=== PATIENT | female | born 1990 | race American Indian/Alaskan Native ===

== ENCOUNTER 2019-02-14 00:47 | Observation (INO) | payer MEDICAID ==
[2019-02-14] MEDS ORDERED: oxyCODONE /ACETAMINOPHEN 5-325MG TAB PO ONE (02:26)
[2019-02-14] MEDS ORDERED: ACETAMINOPHEN 325 MG TAB PO PRN (13:33)
[2019-02-14 16:32] VITALS: BP 114/57
== END 2019-02-14 18:47 | disposition home or self-care (01) ==
LOC: TRG 00:47 → LD 03:23
PROVIDERS: ADMIT Obstetrics & Gynecology; ATTEND Obstetrics & Gynecology
DX: O62.9 Abnormality of forces of labor, unspecified (principal); Z3A.32 32 weeks gestation of pregnancy
CPT/HCPCS: 96372; G0378

== ENCOUNTER 2019-03-10 14:01 | Outpatient (CLI) | payer MEDICAID ==
[2019-03-10 14:34] VITALS: BP 118/79
[2019-03-10] MEDS ORDERED: LACTATED RINGERS 500 ML IV ONE (16:00)
== END 2019-03-10 15:26 | disposition home or self-care (01) ==
LOC: TRG 14:01
PROVIDERS: ATTEND Obstetrics & Gynecology
DX: O47.03 False labor before 37 completed weeks of gestation, third trimester (principal); Z3A.31 31 weeks gestation of pregnancy
CPT/HCPCS: 59025

== ENCOUNTER 2019-04-16 11:01 | Outpatient (CLI) | payer MEDICAID ==
[2019-04-16] MEDS ORDERED: LACTATED RINGERS 500 ML IV ONE (12:00)
[2019-04-16 12:41] LABS: Bilirubin,Urine Negative (Negative); Blood,Urine Negative (Negative); Color,Urine Yellow (Yellow)
[2019-04-16 12:42] LABS: Protein,Urine <15 mg/dL mg/dL (Negative)
[2019-04-16 12:44] LABS: Mucus,Urine 2+ /HPF
[2019-04-16 12:45] LABS: WBC,Urine < 1.0 /HPF (0.0-6.0)
[2019-04-16 13:04] VITALS: BP 122/73
--- NOTE | 2019-04-16 16:02 | Ultrasound Report ---
Limited OB ultrasound INDICATION: Amniotic fluid index FINDINGS: The amniotic fluid index is 9.8 cm. There is a single intrauterine . Fetus is in a cephalic presentation. Placenta is located an teriorly. heart rate is 149 bpm. IMPRESSION: The amniotic fluid index is 9.8 cm which is within normal limits. BIOPHYSICAL PROFILE INDICATION: COMPARISON: None FINDINGS: breathing movement: 0/2 movement: 2/2 posture and tone: 2/2 Qualitative amniotic fluid volume: 2/2 IMPRESSION: Total score for biophysical profile is 6/8. breathing movements were absent. heart rate is 149 bpm Signer Name: Rafael Tolentino MD Signed: 04/16/2019 3:58 PM Workstation Name: [id number]
== END 2019-04-16 15:20 | disposition home or self-care (01) ==
LOC: TRG 11:01
PROVIDERS: ATTEND Obstetrics & Gynecology
DX: O47.03 False labor before 37 completed weeks of gestation, third trimester (principal); Z3A.36 36 weeks gestation of pregnancy
CPT/HCPCS: 59025; 76815; 76819; 81001

== ENCOUNTER 2019-04-23 11:15 | Outpatient (CLI) | payer MEDICAID ==
[2019-04-23 11:44] LABS: Hematocrit 33.7 % (30.3-42.9); Hemoglobin 11.2 gm/dl (10.1-14.3); Mean Corpuscular HGB Conc 33 % (30-34); Mean Corpuscular Volume 93 fl (79-97); Platelet Count 192 K/mm3 (140-440); Red Blood Count 3.62 M/mm3 (3.65-5.03); Red Cell Distribution Width 13.9 % (13.2-15.2)
[2019-04-23 11:54] LABS: Bacteria,Urine 1+ /HPF (Negative); Bilirubin,Urine NEG (Negative); Blood,Urine NEG (Negative); Color,Urine Yellow (Yellow); Hyaline Casts,Urine 1 /LPF; Mucus,Urine 1+ /HPF; Protein,Urine <15 mg/dL mg/dL (Negative)
[2019-04-23 12:15] LABS: Alanine Aminotransferase 27 units/L (7-56); Uric Acid 3.7 mg/dL (3.5-7.6)
[2019-04-23] MEDS ORDERED: LACTATED RINGERS 500 ML IV ONE (12:22)
[2019-04-23 13:57] VITALS: BP 129/77
== END 2019-04-23 14:17 | disposition home or self-care (01) ==
LOC: TRG 11:15
PROVIDERS: ATTEND Obstetrics & Gynecology
DX: O47.1 False labor at or after 37 completed weeks of gestation (principal); Z3A.37 37 weeks gestation of pregnancy
CPT/HCPCS: 36415; 59025; 81001; 82565; 83615; 84450; 84460; 84550; 85027

== ENCOUNTER 2019-04-25 11:31 | Inpatient (IN) | payer MEDICAID ==
[2019-04-25 12:55] LABS: Bacteria,Urine 3+ /HPF (Negative); Bilirubin,Urine NEG (Negative); Blood,Urine NEG (Negative); Color,Urine Yellow (Yellow); Mucus,Urine 3+ /HPF
[2019-04-25 13:07] LABS: Hematocrit 33.5 % (30.3-42.9); Hemoglobin 11.2 gm/dl (10.1-14.3); Mean Corpuscular HGB Conc 34 % (30-34); Mean Corpuscular Volume 92 fl (79-97); Platelet Count 207 K/mm3 (140-440); Red Blood Count 3.64 M/mm3 (3.65-5.03); Red Cell Distribution Width 13.4 % (13.2-15.2)
[2019-04-25 13:29] LABS: Alanine Aminotransferase 26 units/L (7-56); Uric Acid 3.9 mg/dL (3.5-7.6)
--- NOTE | 2019-04-25 14:20 | History and Physical Report ---
History of Present Illness Date of examination: 04/25/19 Chief complaint: Elevated BP's with headaches History of present illness: Pt is a 29yo BF EDC 05/11/19; EGA 37 5/7 weeks presents to L&D complaining of headaches unrelieved with PO Tylenol. She was here 2 days ago with similar complaints, and now having irregular contractions. She received care at [facility] since 23 weeks and course has been unremarkable. records are available and GBS is unknown. Past History Past Medical History: no pertinent history Past Surgical History: no surgical history Social history: no significant social history, - Obstetrical History Expected Date of Delivery: 05/11/19 Actual Gestation: 37 Week(s) 5 Day(s) : 5 Medications and Allergies Allergies Allergy/AdvReac Type Severity Reaction Status Date / Time No Known Allergies Allergy Verified 09/26/13 07:21 Home Medications Medication Instructions Recorded Confirmed Last Taken Type No Known Home Medications [No 02/14/19 03/10/19 Unknown History Reported Home Medications] Active Meds: Active Medications Lactated Ringer's (Lactated Ringers) 1,000 mls @ 125 mls/hr IV DIRECT CYDNEY Review of Systems All systems: negative - Vital Signs Vital signs: Vital Signs Pulse Pulse Ox 111 H 96 04/25/19 12:00 04/25/19 12:00 Temp Pulse Resp BP Pulse Ox 98.6 F 106 H 20 143/90 100 04/25/19 12:46 04/25/19 14:15 04/25/19 12:46 04/25/19 14:15 04/25/19 14:10 - Physical Exam Breasts: Positive: deferred Cardiovascular: Regular rate Lungs: Positive: Clear to auscultation Abdomen: Positive: normal appearance Genitourinary (Female): Positive: normal external genitalia Vagina: Positive: normal moisture Uterus: Positive: enlarged Extremities: Positive: normal - Obstetrical FHR: category 1 Uterine Contraction Monitor Mode: External Uterine Contraction Pattern: Irregular Uterine Tone Measurement Phase: Contraction Uterine Contraction Intensity: Mild Results Result Diagrams: 04/25/19 12:14 04/25/19 12:14 Abnormal lab results 04/25/19 04/25/19 Range/Units 12:14 12:14 RBC 3.64 L (3.65-5.03) M/mm3 Lactate Dehydrogenase 234 H (91-180) units/L All other labs normal. Assessment and Plan - Patient Problems (1) 37 weeks gestation of Onset Date: 04/25/19 Current Visit: Yes Status: Acute Plan to address problem: A: IUP @ 37 5/7 weeks Preeclampsia H/O Preeclampsia P: Admit to L&D for pitocin augmentation of labor Will begin IV Magnesium sulfate if BP's not controlled with IV Hydralazine (2) Hx of pre-eclampsia in prior , currently Onset Date: 04/25/19 Current Visit: No Status: Acute
[2019-04-25] MEDS ORDERED: ONDANSETRON 4 MG/2 ML INJ IV PRN (14:29)
[2019-04-25] MEDS ORDERED: hydrALAZINE 20 MG/1 ML INJ IV PRN (14:29)
[2019-04-25] MEDS ORDERED: ePHEDrine SULFATE 50 MG/1 ML INJ IV PRN (14:29)
[2019-04-25] MEDS ORDERED: MINERAL OIL 30 ML ORAL LIQD PO PRN (14:29)
[2019-04-25] MEDS ORDERED: TERBUTALINE 1 MG/1 ML INJ IVP PRN (14:29)
[2019-04-25] MEDS ORDERED: BUTORPHANOL 2 MG/1 ML INJ IV PRN (14:29)
[2019-04-25] MEDS ORDERED: fentaNYL 100 MCG/2 ML INJ IV PRN (14:29)
[2019-04-25] MEDS ORDERED: PROMETHAZINE 25 MG TAB PO PRN (14:29)
[2019-04-25] MEDS ORDERED: TERBUTALINE 1 MG/1 ML INJ SUB-Q PRN (14:29)
[2019-04-25] MEDS ORDERED: LIDOCAINE (2%) 20 MG/1 ML VIAL 20 ML MDV INFILTRATI ONE (14:29)
[2019-04-25] MEDS ORDERED: OXYTOCIN 20 UNIT/1000ML DRIP 20 UNITS/1,000 ML BAG IV SCH (15:00)
[2019-04-25] MEDS ORDERED: OXYTOCIN DRIP 30 UNITS/500 ML BAG IV SCH (15:00)
[2019-04-25] MEDS ORDERED: LACTATED RINGERS 1,000 ML IV SCH (15:00)
[2019-04-25] MEDS: LACTATED RINGERS 1,000 ML IV SCH (17:22)
[2019-04-25] MEDS: oxyCODONE /ACETAMINOPHEN 5-325MG TAB PO PRN (17:28)
[2019-04-25] MEDS: OXYTOCIN DRIP 30 UNITS/500 ML BAG IV SCH (17:54)
[2019-04-26] MEDS: LACTATED RINGERS 1,000 ML IV SCH ×3 (00:41→11:35)
--- NOTE | 2019-04-26 08:22 | Progress Note ---
Assessment and Plan - Patient Problems (1) 37 weeks gestation of Onset Date: 04/25/19 Current Visit: Yes Status: Acute Plan to address problem: A: IUP @ 37 6/7 weeks Preeclampsia H/O Preeclampsia P: Continue with pitocin augmentation of labor Will begin IV Magnesium sulfate if BP's not controlled with IV Hydralazine (2) Hx of pre-eclampsia in prior , currently Onset Date: 04/25/19 Current Visit: No Status: Acute Subjective - Subjective Date of service: 04/26/19 Principal diagnosis: IUP @ 37 6/7 weeks; Preeclampsia Interval history: Pt is a 29yo BF EDC 05/11/19; EGA 37 6/7 weeks presented to L&D complaining of headaches unrelieved with PO Tylenol. She was here 3 days ago with similar complaints, and now having irregular contractions. She received care at [facility] since 23 weeks and course has been unremarkable. records are available and GBS is negative. She received low dose pitocin last night, and currently on 4mu/min. Patient reports: movement normal, contractions, no new complaints, no loss of fluid, no vaginal bleeding Objective - Vital Signs Vital Signs: Vital Signs - 12hr 04/25/19 04/25/19 04/25/19 20:49 21:21 21:50 Temperature Pulse Rate 88 85 80 Respiratory Rate Blood Pressure 156/98 162/103 152/103 Blood Pressure [Right] 04/25/19 04/25/19 04/25/19 22:19 22:51 23:21 Temperature Pulse Rate 76 76 71 Respiratory Rate Blood Pressure 122/73 130/72 124/72 Blood Pressure [Right] 04/25/19 04/26/19 04/26/19 23:50 00:20 00:33 Temperature Pulse Rate 77 85 Respiratory 18 Rate Blood Pressure 146/93 147/102 Blood Pressure [Right] 04/26/19 04/26/19 04/26/19 00:50 01:19 01:33 Temperature Pulse Rate 86 88 Respiratory 18 Rate Blood Pressure 150/97 136/94 Blood Pressure [Right] 04/26/19 04/26/19 04/26/19 01:50 02:00 02:06 Temperature Pulse Rate 80 83 83 Respiratory Rate Blood Pressure 140/98 163/107 154/102 Blood Pressure [Right] 1204/26/19 04/26/19 02:17 02:32 02:48 Temperature Pulse Rate 85 80 80 Respiratory Rate Blood Pressure 140/92 159/91 138/88 Blood Pressure [Right] 04/26/19 04/26/19 04/26/19 03:00 03:03 03:17 Temperature 98.2 F Pulse Rate 82 82 89 Respiratory 18 Rate Blood Pressure 136/86 142/97 Blood Pressure 136/86 [Right] 04/26/19 04/26/19 04/26/19 04:28 05:26 06:26 Temperature Pulse Rate 87 80 88 Respiratory Rate Blood Pressure 133/85 140/93 139/92 Blood Pressure [Right] 04/26/19 07:26 Temperature Pulse Rate 87 Respiratory Rate Blood Pressure 132/87 Blood Pressure [Right] - Exam Abdomen: Present: normal appearance Uterus: Present: normal FHR: category 1 Uterine Contraction Monitor Mode: External Cervical Dilatation: 3.5 Cervical Effacement Percentage: 60 station: -2 Uterine Contraction Pattern: Regular Uterine Tone Measurement Phase: Contraction Uterine Contraction Intensity: Mild - Labs Labs: Abnormal Labs 04/25/19 04/25/19 12:14 12:14 RBC 3.64 L Lactate Dehydrogenase 234 H Laboratory Results - last 24 hr 04/25/19 04/25/19 04/25/19 12:14 12:14 13:50 WBC 5.7 RBC 3.64 L Hgb 11.2 Hct 33.5 MCV 92 MCH 31 MCHC 34 RDW 13.4 Plt Count 207 Creatinine 0.7 Estimated GFR > 60 Uric Acid 3.9 AST 19 ALT 26 Lactate Dehydrogenase 234 H Urine Color Urine Turbidity Urine pH Ur Specific [place] Urine Protein Urine Glucose (UA) Urine Ketones Urine Blood Urine Nitrite Urine Bilirubin Urine Urobilinogen Ur Leukocyte Esterase Urine WBC (Auto) Urine RBC (Auto) U Epithel Cells (Auto) Urine Bacteria (Auto) Urine Mucus Blood Type B POSITIVE Antibody Screen Negative 04/25/19 Unknown WBC RBC Hgb Hct MCV MCH MCHC RDW Plt Count Creatinine Estimated GFR Uric Acid AST ALT Lactate Dehydrogenase Urine Color Yellow Urine Turbidity Slightly-cloudy Urine pH 6.0 Ur Specific [place] 1.027 Urine Protein 30 mg/dl Urine Glucose (UA) Neg Urine Ketones Neg Urine Blood Neg Urine Nitrite Neg Urine Bilirubin Neg Urine Urobilinogen 2.0 Ur Leukocyte Esterase Neg Urine WBC (Auto) 6.0 Urine RBC (Auto) 3.0 U Epithel Cells (Auto) 5.0 Urine Bacteria (Auto) 3+ Urine Mucus 3+ Blood Type Antibody Screen
[2019-04-26] MEDS ORDERED: DEXMEDETOMIDINE 200 MCG/2 ML VIAL IV ONE (09:14)
--- NOTE | 2019-04-26 09:54 | Anesthesia Consultation ---
Anesthesia Consult and Med Hx Date of service: 04/26/19 - Airway Anesthetic Teeth Evaluation: Good ROM Head & Neck: Adequate Mental/Hyoid Distance: Adequate Mallampati Class: Class II Intubation Access Assessment: Good - Pulmonary Exam CTA: Yes - Cardiac Exam Cardiac Exam: RRR - Pre-Operative Health Status ASA Pre-Surgery Classification: ASA2, Emergency Proposed Anesthetic Plan: Epidural, Spinal - Pulmonary Hx Asthma: No COPD: No Hx Pneumonia: No - Cardiovascular System Hx Hypertension: No Hx Coronary Artery Disease: No Hx Heart Attack/AMI: No Hx Angina: No - Central Nervous System Hx Seizures: No Hx Psychiatric Problems: No - Endocrine Hx Renal Disease: No Hx End Stage Renal Disease: No Hx Hypothyroidism: No Hx Hyperthyroidism: No - Hematic Hx Anemia: No Hx Sickle Cell Disease: No - Other Systems Hx Alcohol Use: No
[2019-04-26] MEDS ORDERED: ePHEDrine SULFATE 50 MG/1 ML INJ IV PRN (10:00)
[2019-04-26] MEDS ORDERED: NALOXONE 2 MG/2 ML INJ IV PRN (10:00)
[2019-04-26] MEDS: fentaNYL-BUPIV 2 MCG/ML-0.125% 200 MCG/100 ML BAG EPIDURAL SCH ×2 (11:35→12:15)
[2019-04-26] MEDS: OXYTOCIN DRIP 30 UNITS/500 ML BAG IV SCH (11:41)
--- NOTE | 2019-04-26 14:40 | Post Anesthesia Evaluation ---
- Post Anesthesia Evaluation Patient Participated: Yes Airway Patent: Yes Stable Respiratory Function: Yes Nausea/Vomiting: No Temp > 96.8F: Yes Pain Manageable: Yes Adequeate Hydration: Yes Anesthesia Complications: No Block Receding Appropriately: Yes Patient on Ventilator: No
--- NOTE | 2019-04-26 14:47 | Procedure Note ---
OB Delivery Note - Delivery Date of Delivery: 04/26/19 Surgeon: CHINTAN OLIVARES Estimated blood loss: other (150ml) - Vaginal Delivery presentation: vertex Delivery position: OA Intrapartum events: PROM->1hr before delivery, preeclampsia Delivery induction: oxytocin Delivery augmentation: rupture of membranes, pitocin Delivery monitor: external FHT, external uterine Route of delivery: Delivery placenta: spontaneous Delivery cord: nuchal cord, 3 umbilical vessels Episiotomy: none Delivery laceration: none Anesthesia: epidural Delivery comments: Infant delivered OA and placed on Mom's chest for [id number] bonding and delayed cord clamping, cut by Dad - A at 1 minute: 9 at 5 minutes: 9 Gender: Female (2684gms)
[2019-04-26] MEDS ORDERED: PROMETHAZINE 25 MG TAB PO PRN (14:54)
[2019-04-26] MEDS ORDERED: WITCH HAZEL/ GLYCERIN PAD TP PRN (14:54)
[2019-04-26] MEDS ORDERED: ONDANSETRON 4 MG/2 ML INJ IV PRN (14:54)
[2019-04-26] MEDS ORDERED: ACETAMINOPHEN 325 MG TAB PO PRN (14:54)
[2019-04-26] MEDS ORDERED: diphenhydrAMINE 25 MG CAP PO PRN (14:54)
[2019-04-26] MEDS ORDERED: MAGNESIUM HYDROXIDE (MOM) ORAL LIQD UDC PO PRN (14:54)
[2019-04-26] MEDS ORDERED: PROMETHAZINE 25 MG RECT SUPP PR PRN (14:54)
[2019-04-26] MEDS ORDERED: LANOLIN/ZINC/DIMETHICONE (LANSINOH) 7 GM TP PRN (14:54)
[2019-04-26] MEDS ORDERED: OXYTOCIN 20 UNIT/1000ML DRIP 20 UNITS/1,000 ML BAG IV SCH (15:00)
[2019-04-26] MEDS: IBUPROFEN 600 MG TAB PO SCH ×2 (17:40→23:13)
[2019-04-26] MEDS: FERROUS SULFATE 325 MG TAB PO SCH (23:13)
[2019-04-27] MEDS: oxyCODONE /ACETAMINOPHEN 5-325MG TAB PO PRN (04:55)
[2019-04-27] MEDS ORDERED: TETANUS,DIPH,PERTUSS(ACELL) VACCINE 0.5 ML SYRINGE IM ONE (06:00)
[2019-04-27 07:10] LABS: Hematocrit 26.4 % (30.3-42.9); Hemoglobin 8.9 gm/dl (10.1-14.3)
[2019-04-27] MEDS: IBUPROFEN 600 MG TAB PO SCH ×3 (07:12→18:02)
--- NOTE | 2019-04-27 09:31 | Progress Note ---
Assessment and Plan - Patient Problems (1) 37 weeks gestation of Onset Date: 04/25/19 Current Visit: Yes Status: Resolved (2) Hx of pre-eclampsia in prior , currently Onset Date: 04/25/19 Current Visit: No Status: Chronic (3) Normal spontaneous vaginal delivery Onset Date: 04/27/19 Current Visit: No Status: Resolved Plan to address problem: A: S/P - PPD #1 Doing well Preeclampsia - elevated BP's Asymptomatic anemia - stable P: Will begin Labetolol for BP control Anticipate discharge tomorrow. (4) Acute blood loss anemia Onset Date: 04/27/19 Current Visit: Yes Status: Resolved Subjective - Subjective Date of service: 04/27/19 Principal diagnosis: s/p - PPD #1 Interval history: Pt is feeling well without complaints. Bleeding improved. Patient reports: appetite normal, voiding normally, pain well controlled, flatus, ambulating normally, no dizzy ambulation, no nauseated Lane: doing well, nursing well, bottle feeding Objective - Vital Signs Latest vital signs: Vital Signs Temp Pulse Resp BP BP Pulse Ox 04/27/19 08:30 98 F 84 18 149/91 04/27/19 00:12 98.4 F 85 16 114/68 96 04/26/19 21:07 98.7 F 82 16 139/90 96 04/26/19 16:23 97.8 F 84 20 142/95 100 04/26/19 14:50 79 144/91 04/26/19 14:45 80 100 04/26/19 14:40 86 100 04/26/19 14:35 86 145/95 99 04/26/19 14:30 86 100 04/26/19 14:25 86 99 04/26/19 14:20 89 151/96 100 04/26/19 14:15 95 H 100 04/26/19 14:10 96 H 99 04/26/19 14:08 100 H 79 L 04/26/19 14:05 98 H 99 04/26/19 14:03 96 H 134/94 04/26/19 14:00 103 H 99 04/26/19 13:55 100 H 131/90 100 04/26/19 13:50 127 H 100 04/26/19 13:45 107 H 99 04/26/19 13:40 105 H 100 04/26/19 13:35 95 H 135/98 100 04/26/19 13:30 89 100 04/26/19 13:25 89 100 04/26/19 13:20 90 100 04/26/19 13:15 86 142/92 100 04/26/19 13:10 83 100 04/26/19 13:05 88 100 04/26/19 13:00 83 100 04/26/19 12:56 83 140/92 04/26/19 12:55 85 100 04/26/19 12:50 81 100 04/26/19 12:45 84 100 04/26/19 12:40 85 100 04/26/19 12:36 91 H 136/88 04/26/19 12:35 96 H 100 04/26/19 12:30 91 H 100 04/26/19 12:25 94 H 100 04/26/19 12:20 95 H 100 04/26/19 12:17 94 H 136/93 04/26/19 12:15 105 H 100 04/26/19 12:10 93 H 100 04/26/19 12:05 93 H 100 04/26/19 12:01 92 H 91 04/26/19 12:00 95 H 99 04/26/19 11:55 96 H 100 04/26/19 11:50 127 H 100 04/26/19 11:48 82 109/67 04/26/19 11:45 90 100 04/26/19 11:42 87 120/76 04/26/19 11:40 81 97 04/26/19 11:37 85 106/69 04/26/19 11:35 82 97 04/26/19 11:33 86 112/67 04/26/19 11:30 102 H 99 04/26/19 11:27 94 H 133/76 04/26/19 11:25 93 H 97 04/26/19 11:23 88 127/79 04/26/19 11:20 87 97 04/26/19 11:17 88 118/76 04/26/19 11:15 88 97 04/26/19 11:13 83 134/79 04/26/19 11:10 91 H 97 04/26/19 11:07 87 125/78 04/26/19 11:05 84 97 04/26/19 11:02 92 H 133/81 04/26/19 11:00 92 H 97 04/26/19 10:57 88 129/81 04/26/19 10:55 94 H 96 04/26/19 10:53 88 130/81 94 04/26/19 10:50 94 H 96 04/26/19 10:47 91 H 129/73 04/26/19 10:45 86 96 04/26/19 10:43 90 129/76 94 04/26/19 10:40 97 H 96 04/26/19 10:37 96 H 129/75 04/26/19 10:35 92 H 97 04/26/19 10:32 92 H 126/78 04/26/19 10:30 93 H 96 04/26/19 10:27 103 H 122/80 04/26/19 10:25 91 H 96 04/26/19 10:22 100 H 132/83 04/26/19 10:20 98 H 130/80 97 04/26/19 10:18 104 H 133/80 04/26/19 10:16 104 H 138/89 04/26/19 10:15 99 H 99 04/26/19 10:14 107 H 139/88 04/26/19 10:12 101 H 137/78 04/26/19 10:10 103 H 145/81 99 04/26/19 10:08 95 H 153/83 04/26/19 10:06 108 H 148/108 04/26/19 10:05 107 H 100 04/26/19 10:04 107 H 168/109 04/26/19 10:02 113 H 165/108 04/26/19 09:38 91 H 155/96 Intake and Output 04/26/19 04/27/19 04/27/19 22:59 06:59 14:59 Intake Total 120 Balance 120 Intake: Oral 120 Other: Total, Intake Amount 120 - Exam Breasts: Present: deferred Abdomen: Present: normal appearance, soft Uterus: Present: normal, firm, fundal height below umbilicus Extremities: Present: normal - Labs Labs: Abnormal lab results 04/27/19 Range/Units 05:36 Hgb 8.9 L (10.1-14.3) gm/dl Hct 26.4 L D (30.3-42.9) % Laboratory Tests 04/25/19 04/25/1919 12:14 12:14 13:50 WBC 5.7 RBC 3.64 L Hgb 11.2 Hct 33.5 MCV 92 MCH 31 MCHC 34 RDW 13.4 Plt Count 207 Creatinine 0.7 Estimated GFR > 60 Uric Acid 3.9 AST 19 ALT 26 Lactate Dehydrogenase 234 H Urine Color Urine Turbidity Urine pH Ur Specific [place] Urine Protein Urine Glucose (UA) Urine Ketones Urine Blood Urine Nitrite Urine Bilirubin Urine Urobilinogen Ur Leukocyte Esterase Urine WBC (Auto) Urine RBC (Auto) U Epithel Cells (Auto) Urine Bacteria (Auto) Urine Mucus Blood Type B POSITIVE Antibody Screen Negative 04/25/19 04/27/19 Unknown 05:36 WBC RBC Hgb 8.9 L Hct 26.4 L D MCV MCH MCHC RDW Plt Count Creatinine Estimated GFR Uric Acid AST ALT Lactate Dehydrogenase Urine Color Yellow Urine Turbidity Slightly-cloudy Urine pH 6.0 Ur Specific [place] 1.027 Urine Protein 30 mg/dl Urine Glucose (UA) Neg Urine Ketones Neg Urine Blood Neg Urine Nitrite Neg Urine Bilirubin Neg Urine Urobilinogen 2.0 Ur Leukocyte Esterase Neg Urine WBC (Auto) 6.0 Urine RBC (Auto) 3.0 U Epithel Cells (Auto) 5.0 Urine Bacteria (Auto) 3+ Urine Mucus 3+ Blood Type Antibody Screen
[2019-04-27] MEDS: PRENATAL VIT27-FE FUMARATE-FOLIC ACID VIT TAB PO SCH (09:54)
[2019-04-27] MEDS: FERROUS SULFATE 325 MG TAB PO SCH ×2 (09:54→22:00)
[2019-04-27] MEDS ORDERED: MEASLES, MUMPS & RUBELLA 12,500 UNIT/0.5 ML VACCINE SUB-Q ONE (14:54)
[2019-04-28] MEDS: IBUPROFEN 600 MG TAB PO SCH ×2 (00:14→06:16)
[2019-04-28] MEDS: FERROUS SULFATE 325 MG TAB PO SCH (11:04)
[2019-04-28] MEDS: PRENATAL VIT27-FE FUMARATE-FOLIC ACID VIT TAB PO SCH (11:06)
[2019-04-28] MEDS: oxyCODONE /ACETAMINOPHEN 5-325MG TAB PO PRN (11:06)
--- NOTE | 2019-04-28 12:48 | Discharge Summary ---
Providers - Providers Date of Admission: 04/25/19 11:32 Date of discharge: 04/28/19 Attending physician: CHINTAN OLIVARES Primary care physician: CHINTAN OLIVARES Hospitalization Reason for admission: induction of labor, IUP at term, other (Preeclampsia) Delivery: Episiotomy: none Laceration: none Other procedures: none complications: none Discharge diagnosis: IUP at term delivered baby: female Hospital course: Unremarkable. Condition at discharge: Good Disposition: DC-01 TO HOME OR SELFCARE - Discharge Diagnoses (1) 37 weeks gestation of Status: Resolved (2) Hx of pre-eclampsia in prior , currently Status: Chronic (3) Normal spontaneous vaginal delivery Status: Resolved (4) Acute blood loss anemia Status: Resolved Plan - Discharge Medications Prescriptions: Ferrous Sulfate [Feosol 325 MG tab] 325 mg PO BID #60 tablet labetaloL [Labetalol 200mg TAB] 200 mg PO BID #60 tablet Ibuprofen [Motrin 600 MG tab] 600 mg PO Q6HR #30 tablet Vit-Fe Fumar-FA [ Vitamin] 1 each PO QDAY #30 tablet - Provider Discharge Summary Activity: routine, no sex for 6 weeks, no heavy lifting 4 weeks, no strenuous exercise Diet: routine Instructions: routine Additional instructions: [] Smoking cessation referral if applicable(refer to patient education folder for contact #) [] Refer to [facility] Booklet Call your doctor immediately for: * Fever > 100.5 * Heavy vaginal bleeding ( >1 pad per hour) * Severe persistent headache * Shortness of breath * Reddened, hot, painful area to leg or breast * Drainage or odor from incision. * Keep incision clean and dry at all times and follow doctor's instructions regarding bathing/showering Follow up in office in 1 week for BP check - Follow up plan Follow up: CHINTAN OLIVARES MD [Primary Care Provider] - 7 Days JENNY BRISENO [Advanced Practice Nurse] - 7 Days
--- NOTE | 2019-04-28 12:48 | Progress Note ---
Assessment and Plan - Patient Problems (1) 37 weeks gestation of Onset Date: 04/25/19 Current Visit: Yes Status: Resolved (2) Hx of pre-eclampsia in prior , currently Onset Date: 04/25/19 Current Visit: No Status: Chronic (3) Normal spontaneous vaginal delivery Onset Date: 04/27/19 Current Visit: No Status: Resolved Plan to address problem: A: S/P - PPD #2 Doing well Preeclampsia - BP's improved with Labetolol Asymptomatic anemia - stable P: May go home today. (4) Acute blood loss anemia Onset Date: 04/27/19 Current Visit: Yes Status: Resolved Subjective - Subjective Date of service: 04/28/19 Principal diagnosis: s/p - PPD #2 Interval history: Pt is feeling well without complaints. Patient reports: appetite normal, voiding normally, pain well controlled, flatus, ambulating normally, no dizzy ambulation, no nauseated [place]: doing well, nursing well, bottle feeding Objective - Vital Signs Latest vital signs: Vital Signs Temp Pulse Resp BP BP Pulse Ox 04/28/19 11:06 20 04/28/19 08:07 98.8 F 84 20 130/87 99 04/28/19 03:52 98.2 F 92 H 16 113/72 96 04/28/19 00:10 98.4 F 89 16 115/77 98 04/27/19 21:50 98.5 F 88 18 124/82 124/82 98 04/27/19 17:25 98.1 F 89 20 126/83 Intake and Output 04/27/19 04/28/19 04/28/19 22:59 06:59 14:59 Intake Total 120 120 Balance 120 120 Intake: Oral 120 120 Other: Total, Intake Amount 120 120 # Voids Void 1 1 - Exam Breasts: Present: deferred Abdomen: Present: normal appearance, soft Uterus: Present: normal, firm, fundal height below umbilicus Extremities: Present: normal
[2019-04-28 16:47] VITALS: BP 141/89
== END 2019-04-28 16:57 | disposition home or self-care (01) | DRG 775 ==
LOC: TRG 11:31 → LD 11:32 → OB 04-26 16:34
PROVIDERS: ADMIT Obstetrics & Gynecology; ATTEND Obstetrics & Gynecology
PROC: 10E0XZZ Delivery of Products of Conception, External Approach (ICD-10-PCS; principal; 2019-04-26)
PROC: 3E0R3BZ Introduction of Anesthetic Agent into Spinal Canal, Percutaneous Approach (ICD-10-PCS; 2019-04-26)
PROC: 00HU33Z Insertion of Infusion Device into Spinal Canal, Percutaneous Approach (ICD-10-PCS; 2019-04-26)
PROC: 3E033VJ Introduction of Other Hormone into Peripheral Vein, Percutaneous Approach (ICD-10-PCS; 2019-04-26)
PROC: 3E0234Z Introduction of Serum, Toxoid and Vaccine into Muscle, Percutaneous Approach (ICD-10-PCS; 2019-04-27)
PROC: 3E0134Z Introduction of Serum, Toxoid and Vaccine into Subcutaneous Tissue, Percutaneous Approach (ICD-10-PCS; 2019-04-27)
DX: O42.92 Full-term premature rupture of membranes, unspecified as to length of time between rupture and onset of labor (principal); O14.94 Unspecified pre-eclampsia, complicating childbirth; O99.02 Anemia complicating childbirth; D62 Acute posthemorrhagic anemia; O69.81X0 Labor and delivery complicated by cord around neck, without compression, not applicable or unspecified; Z23 Encounter for immunization; Z37.0 Single live birth; Z3A.37 37 weeks gestation of pregnancy
CPT/HCPCS: 36415; 59025; 81001; 82565; 83615; 84450; 84460; 84550; 85014; 85018; 85027; 86850; 86900; 86901; G0378; J2590; J3010; J3490; J7120